=== PATIENT | male | born 1985 | race Caucasian/White ===

== ENCOUNTER → 2022-06-28 14:21 | Outpatient (BNVA) | payer OTHER, SELFPAY | PROVIDERS: Visit Provider Physician Assistant | DX: M77.11 Lateral epicondylitis, right elbow (principal) | CPT/HCPCS: 99203 ==

== ENCOUNTER → 2022-07-05 13:56 | Outpatient (BNVA) | payer OTHER, SELFPAY | PROVIDERS: Visit Provider Physician Assistant | DX: M77.11 Lateral epicondylitis, right elbow (principal) | CPT/HCPCS: 99213 ==

== ENCOUNTER → 2022-07-19 14:33 | Outpatient (BNVA) | payer OTHER, SELFPAY | PROVIDERS: Visit Provider Physician Assistant | DX: M77.11 Lateral epicondylitis, right elbow (principal) | CPT/HCPCS: 99213 ==

== ENCOUNTER → 2022-08-01 14:45 | Outpatient (BNVA) | payer OTHER, SELFPAY | PROVIDERS: Visit Provider Physician Assistant | DX: M77.11 Lateral epicondylitis, right elbow (principal) | CPT/HCPCS: 99213 ==

== ENCOUNTER → 2022-08-27 10:45 | Outpatient (BNVA) | payer OTHER, SELFPAY | PROVIDERS: Visit Provider Physician Assistant | DX: M77.11 Lateral epicondylitis, right elbow (principal) | CPT/HCPCS: 20551; 99202; J1020 ==

== ENCOUNTER 2022-09-05 15:30 | Outpatient (RCR) | payer OTHER, BC, SELFPAY ==
--- NOTE | 2022-07-13 15:11 | MHC.OT.EP ---
[address] [phone] Occupational Therapy Plan of Care Patient Name: Chance Lane Date of Evaluation: 07/13/22 Diagnosis: Right lateral epicondylitis Pain Location: 2/10 resting pain in lateral elbow 7/10 w/ use Tenderness to palpate right lateral epi Pain Score: 7 Pain Scale Used: Numeric (0 - 10) Aggravating Factors: Worse w/ extension or gripping Alleviating Factors: Ibuprophen 800 1-2x/day, icy-hot patches Assessment: 36 yo right hand dominant male presents w/ right lateral elbow pain after overuse/heavy lifting at work a few weeks ago. He was seen in work connection and placed on light duty, now referred to OT for continued care. On assessment, he reports low resting pain, but elevates to 6-7/10 w/ heavier lifting, gripping or extending arm out. 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 He will benefit from cont'd therapy services for optimal gains w/ goal of pain free elbow and return to full work duties. Frequency and Duration: The patient will be seen 4 weeks Short Term Goals: Ind w/ CFB wear w/ daily activities Ind w/ use of ice and heat appropriately Good follow through w/ sleep modifications to decrease nighttime pain Progress to eccentric wrist exercises Group Home Goals: Pt to report ease w/ moderate lifting tasks (homecare, pots, pans, boxes) Ind w/ progression of resisted exercises Right gross grasp 90 lb w/ minimal pain Treatment Plan: Therapeutic Exercise Therapeutic Activity Home Exercise Program Patient Education Edema Control ADL Training Ultrasound Iontophoresis Fluidotherapy MHP Cold Packs Soft Tissue Mobilization Kinesiotaping Counter force brace Dexamethasone Electronically Signed By: Krista Will OTR/Claus CHT Please Sign and return to therapist. Thank you once again for your referral.
--- NOTE | 2022-09-05 16:25 | MHC.OT.DC ---
[address] [phone] F: [phone] Occupational Therapy Discharge Note Patient Name: Chance Lane Provider: Jessenia Wang Diagnosis: Right lateral epicondylitis Date of Surgery: Date of Evaluation: 07/13/22 Date of Discharge: 09/05/22 Treatments to Date: 13 Cancellations to Date: 0 No Shows to Date: 0 Discharge Status: Achieved Goals Improved Function Independent with HEP Discharge Summary: Excellent benefit from cortisone injection. Pt pain free with full use of UE . Pt able to demonstrate indep with HEP and demonstrated 10 push ups without any difficulty. I anticipate no difficulty with pt returning to full duty. Electronically Signed By: Josefina Ortega OT CHT CLT Reviewed/agree with student documentation: Therapist: Please Sign and return to therapist, thank you for your referral.
== END 2022-09-05 16:26 | disposition home or self-care (01) ==
LOC: HO.OT 15:30
PROVIDERS: Visit Provider Physician Assistant
DX: M77.11 Lateral epicondylitis, right elbow (principal)
CPT/HCPCS: 97033; 97035; 97110; 97140; 97165